=== PATIENT | female | born 1965 | race Caucasian/White ===

== ENCOUNTER → 2017-01-19 | Outpatient (CLI) | payer BC ==
[~2017-01-19] MED LIST: GLUC1CAP33 PO; MULT-513 PO
--- NOTE | 2017-01-19 12:55 | MAMMOGRAPHY REPORT ---
BILATERAL DIGITAL SCREENING MAMMOGRAM TOMOSYNTHESIS WITH CAD: 01/19/2017 TECHNIQUE: Breast tomosynthesis in addition to standard 2D mammography was performed. Current study was also evaluated with a Computer Aided Detection (CAD) system. COMPARISON: Comparison is made to exams dated: 02/03/2009, 01/09/2008, and 01/01/2008. BREAST COMPOSITION: The tissue of both breasts is heterogeneously dense, which may obscure small mas ses. FINDINGS: There is an oval circumscribed 5 cm mass in the right central/9:00 breast, for which ultra sound is recommended for further evaluation. This may represent a cyst. The remainder of both breasts are stable compared to prior exams, without suspicious masses, calcific ations, or areas of architectural distortion noted. Benign-appearing calcifications in the left [address] are not significantly changed. IMPRESSION: ACR BI-RADS CATEGORY 0: INCOMPLETE EVALUATION: NEED ADDITIONAL IMAGING EVALUATION Right breast mass, for which ultrasound is recommended for further evaluation. The patient will be c alled to schedule an appointment. Approximately 10% of breast cancers are not detected with mammography. A negative mammographic report should not delay biopsy if a clinically suggestive mass is present. Cherelle Rodgers M.D. ah/:01/19/2017 07:49:04 Blood Bank Supervisor: Ambar MITCHELL(R)(M), [facility] letter sent: Addl Imaging 0 BI-RADS Code: ACR BI-RADS Category 0: Incomplete Evaluation: Need Additional Imaging Evaluation
== END | disposition home or self-care (01) ==
LOC: C.MAMM 07:21
PROVIDERS: ATTEND Obstetrics & Gynecology
DX: Z12.31 Encounter for screening mammogram for malignant neoplasm of breast (principal); N63 Unspecified lump in breast

== ENCOUNTER → 2017-01-24 | Outpatient (CLI) | payer BC | END | disposition home or self-care (01) | LOC: C.PAPS 12:16 | PROVIDERS: ATTEND Obstetrics & Gynecology | DX: Z01.419 Encounter for gynecological examination (general) (routine) without abnormal findings (principal) ==

== ENCOUNTER → 2017-01-25 | Outpatient (CLI) | payer BC ==
--- NOTE | 2017-01-25 13:13 | MAMMOGRAPHY REPORT ---
ULTRASOUND OF RIGHT BREAST: 01/25/2017 CLINICAL HISTORY: Callback from screening mammogram for right breast mass. COMPARISON: Comparison is made to exams dated: 01/19/2017 mammogram - [facility], , 01/09/2008, 01/09/2008, 01/09/2008, and 01/01/2008. TECHNIQUE: Real-time targeted ultrasound of the right breast was performed. FINDINGS: Real-time, high resolution targeted ultrasound was performed of the area of the 5 cm circu mscribed mass seen on the recent screening mammogram. In the right breast at 9:00 periareolar region , there is an oval anechoic circumscribed mass which measures 4.7 x 1.3 x 3.5 cm. This corresponds w ith the mammographic mass and is consistent with a benign simple cyst. No suspicious solid masses we re evident. IMPRESSION: ACR BI-RADS CATEGORY 2: BENIGN Benign 4.7 cm simple cyst in the right 9:00 breast, which corresponds with the mammographic mass. Th ere is no sonographic evidence of malignancy. A 1 year screening mammogram is recommended. The patient was verbally notified of the results. Cherelle Rodgers M.D. /:01/25/2017 10:03:07 Jeweler Apprentice: Yasmine MCKEON)(M), [facility] letter sent: Normal 1/2 BI-RADS Code: ACR BI-RADS Category 2: Benign
== END | disposition home or self-care (01) ==
LOC: C.MAMM 09:32
PROVIDERS: ATTEND Obstetrics & Gynecology
DX: N63 Unspecified lump in breast (principal)

== ENCOUNTER 2017-05-17 12:26 | Emergency (ER) | payer BC ==
[~2017-05-17] VITALS: Ht 170.2 cm; Wt 67.5 kg
[2017-05-17 12:30] VITALS: TEMP 36.8; Ht 170.2 cm; Wt 67.5 kg
[2017-05-17] MEDS ORDERED: GLUC1CAP33 PO (13:13)
[2017-05-17] MEDS ORDERED: MULT-513 PO (13:13)
[2017-05-17] MEDS ORDERED: ASPIRIN 324 MG CHEW PO STA (13:28)
[2017-05-17 13:45] LABS: BASO % 0.4 %; BASO ABS # 0.03 K/uL (0-0.2); COMPLETE YES; EOS % 1.4 %; HEMATOCRIT 41.1 % (37-47); IG% 0.3 %; LYMPH % 18.1 %; LYMPH ABS # 1.27 K/uL (1.2-3.4); MEAN CELL VOLUME 86.2 fL (80-100); MEAN CORPUSCULAR HEMOGLOBIN 29.8 pg (25-34); MEAN CORPUSCULAR HGB CONC 34.5 g/dl (32-36); MONO % 12.4 %; NEUT % 67.4 %; PLATELET COUNT 245 K/uL (130-400); RED BLOOD COUNT 4.77 M/uL (4.2-5.4)
[2017-05-17 13:51] LABS: PROTHROMBIN TIME (PATIENT) 10.5 SECONDS (9.0-12.0)
[2017-05-17 13:55] LABS: CREATININE 0.62 mg/dl (0.60-1.20); POTASSIUM 3.8 mmol/L (3.5-5.1)
[2017-05-17 13:55] LABS: POINT OF CARE TROPONIN I < 0.030 ng/ml (0-0.045)
[2017-05-17 14:06] LABS: ALB/GLOB RATIO 1.1 (0.9-2); CKMB/CK RATIO 1.8 (0-3.0); PREG INTERNAL NEGATIVE QC NEG CLEAR BACKGROUND; PREG INTERNAL POSITIVE QC POS CONTROL LINE; THYROID STIMULATING HORMONE 1.95 uIu/ml (0.300-4.500)
--- NOTE | 2017-05-17 14:12 | DIAGNOSTIC IMAGING REPORT ---
CHEST 2 VIEWS ROUTINE HISTORY: 52 years-old Female JAW PAIN, CHEST PAIN, SOB acute atypical chest pain with shortness of breath. COMPARISON: KUB 03/18/2014 TECHNIQUE: Frontal and lateral views of the chest FINDINGS: Cardiomediastinal and hilar silhouettes are within normal limits. There is atherosclerosis of the aorta. No pneumothorax, pleural effusion or focal airspace consolidation. Lungs are mildly hyperinflated. The bones appear grossly intact. IMPRESSION: No acute cardiopulmonary process. The above report was generated using voice recognition software. It may contain grammatical, syntax or spelling errors. Electronically signed by: Paramjit Salinas M.D. 05/17/2017 2:11 PM Dictated Date/Time: 05/17/2017 2:09 PM
--- NOTE | 2017-05-17 15:41 | EMERGENCY ROOM VISIT NOTE ---
History First contact with patient: 13:08 Chief Complaint: CARDIAC ASSESSMENT Stated Complaint: TIGHTNESS IN CHEST Nursing Triage Summary: CP since Monday, across chest. Today started with radiation to jaw and associated SOB History of Present Illness Patient is a 52-year-old white female who presents emergency department for evaluation of chest heaviness, jaw pain and shortness of breath. She states that her symptoms started about 4 days ago with heaviness in the right upper chest. It started Monday evening. She was resting at home at the time of onset. She previously had been feeling well. She denies any unusual activity or injury that could have caused the symptoms. She states that she "felt off," but cannot elaborate more on that. She states the heaviness in her chest was constant, and denies that it was painful. She did not take anything for her symptoms and went to bed and when she woke up the following day she felt fine until today. Around 8:00, she noticed some soreness in the left side of her jaw. She describes it as a dull, tight, ache. She states that it was constant throughout the day, and began to radiate towards her chin and down her anterior neck. Around lunchtime, she noticed some heaviness in the right arm which has persisted, and some slight shortness of breath which she describes as a sensation that she cannot take a full breath. She denies any true anterior chest pain, palpitations. She rates her discomfort a 5/10. She is still experiencing some shortness of breath and heaviness in the right arm, the jaw pain has receded more towards the left jaw presently. The pain also did stretch across her upper back, above her bra line. She does not take any medications for days symptoms either. She denies any associated headache, lightheadedness, dizziness, nausea, vomiting, indigestion or reflux, no urinary symptoms or bowel changes. She denies any abdominal pain or low back pain. She 's never had symptoms similar to this previously. She had a remote some palpitations when she was with her adult son that were evaluated with an EKG, but has never had any recent cardiac evaluation or a stress test. She is relatively healthy, denies any history of diabetes, heart disease or hypertension. She states that her total cholesterol is low, but she has high triglycerides which she is treating with ice, medication. She does not know any family history as she is adopted. She was never a smoker. She denies any calf or leg pain or swelling. No recent travel. She is perimenopausal, still does get fairly regular menstrual cycles. Review of Systems Review of systems as per HPI. All other systems reviewed were negative. 10 systems reviewed. Past Medical/Surgical History Medical Problems: (1) Anxiety (2) Migraines (3) Personal History Of Urinary Calculi Electronic medical records are reviewed and summarized as above/below. See Problem List. Family History Patient reports no known family medical history. Patient was adopted, does not know any family history. Social History Smoking Status: Never Smoker Housing Status: lives with family Occupation Status: employed Current/Historical Medications Scheduled Glucosamine-Chondroitin (Glucosamine & Chondroitin 500-400 mg), 1 CAP PO DAILY Multivitamins/Minerals (Mvi With Minerals), 1 TAB PO DAILY Physical Exam Vital Signs Date Time Temp Pulse Resp B/P (MAP) Pulse Ox O2 Delivery O2 Flow Rate FiO2 05/17/17 16:07 88 20 120/80 97 05/17/17 14:31 84 16 127/91 98 Room Air 05/17/17 13:05 96 Room Air 05/17/17 12:47 89 05/17/17 12:43 86 16 132/94 96 Room Air 05/17/17 12:30 36.8 97 18 134/93 96 Room Air Physical Exam CONSTITUTIONAL: Patient is a pleasant, well-appearing 52-year-old white female who is awake and alert and in no acute distress. Her family members are at the bedside. EYES: Pupils equal, round, reactive to light and accommodation. EOMs intact without nystagmus. Sclera are anicteric. ENT: Tympanic membranes intact, with normal landmarks. External canals are clear. Oral and nasopharynx are clear. Mucous membranes are moist, no lesions , tongue and gums appear normal. NECK: No bruits auscultated. Supple without lymphadenopathy. No thyromegaly. No meningeal signs. Full active range of motion without discomfort. CARDIOVASCULAR: Regular rate and rhythm, with normal S1 and S2, no murmur or gallop or rub is heard. No carotid bruits auscultated. No JVD. Peripheral pulses easy to palpable. RESPIRATORY: Breath sounds equal and clear to auscultation without wheezes, rales, or rhonchi heard. Full and equal chest expansion without accessory muscle use or retractions. GI: Bowel sounds are present. Abdomen is soft, nontender, nondistended. No organomegaly. No pulsatile masses. No guarding or rebound. MUSCULOSKELETAL: Full range of motion of extremities x 4 with good strength. No cyanosis, edema, joint tenderness or swelling. No deformity. INTEGUMENTARY: No lesions or rash, normal skin turgor. NEUROLOGICAL: Alert, oriented, and cooperative. Cranial nerves, sensation and strength grossly intact. Pupils round, equal, and react to light, EOMs are full. LYMPH: No lymphadenopathy. Medical Decision & Procedures ER Provider Diagnostic Interpretation: CHEST 2 VIEWS ROUTINE HISTORY: 52 years-old Female JAW PAIN, CHEST PAIN, SOB acute atypical chest pain with shortness of breath. COMPARISON: K[facility] 03/18/2014 TECHNIQUE: Frontal and lateral views of the chest FINDINGS: Cardiomediastinal and hilar silhouettes are within normal limits. There is atherosclerosis of the aorta. No pneumothorax, pleural effusion or focal airspace consolidation. Lungs are mildly hyperinflated. The bones appear grossly intact. IMPRESSION: No acute cardiopulmonary process. Laboratory Results 05/17/17 12:43 Red Blood Count 4.77, Mean Corpuscular Volume 86.2, Mean Corpuscular Hemoglobin 29.8, Mean Corpuscular Hemoglobin Concent 34.5, Mean Platelet Volume 10.0, Neutrophils (%) (Auto) 67.4, Lymphocytes (%) (Auto) 18.1, Monocytes (%) (Auto) 12.4, Eosinophils (%) (Auto) 1.4, Basophils (%) (Auto) 0.4, Neutrophils # (Auto ) 4.71, Lymphocytes # (Auto) 1.27, Monocytes # (Auto) 0.87, Eosinophils # (Auto ) 0.10, Basophils # (Auto) 0.03 05/17/17 12:43 Test 05/17/17 12:43 05/17/17 13:37 05/17/17 14:44 White Blood Count 7.00 K/uL (4.8-10.8) Red Blood Count 4.77 M/uL (4.2-5.4) Hemoglobin 14.2 g/dL (12.0-16.0) Hematocrit 41.1 % (37-47) Mean Corpuscular Volume 86.2 fL (80-100) Mean Corpuscular Hemoglobin 29.8 pg (25-34) Mean Corpuscular Hemoglobin Concent 34.5 g/dl (32-36) Platelet Count 245 K/uL (130-400) Mean Platelet Volume 10.0 fL (7.4-10.4) Neutrophils (%) (Auto) 67.4 % Lymphocytes (%) (Auto) 18.1 % Monocytes (%) (Auto) 12.4 % Eosinophils (%) (Auto) 1.4 % Basophils (%) (Auto) 0.4 % Neutrophils # (Auto) 4.71 K/uL (1.4-6.5) Lymphocytes # (Auto) 1.27 K/uL (1.2-3.4) Monocytes # (Auto) 0.87 K/uL (0.11-0.59) Eosinophils # (Auto) 0.10 K/uL (0-0.5) Basophils # (Auto) 0.03 K/uL (0-0.2) RDW Standard Deviation 40.0 fL (36.4-46.3) RDW Coefficient of Variation 12.7 % (11.5-14.5) Immature Granulocyte % (Auto) 0.3 % Immature Granulocyte # (Auto) 0.02 K/uL (0.00-0.02) Prothrombin Time 10.5 SECONDS (9.0-12.0) Prothromb Time International Ratio 1.0 (0.9-1.1) Activated Partial Thromboplast Time 26.2 SECONDS (21.0-31.0) Partial Thromboplastin Ratio 1.0 Anion Gap 7.0 mmol/L (3-11) Est Creatinine Clear Calc Drug Dose 104.4 ml/min Estimated GFR () 121.0 Estimated GFR (Non- 104.4 BUN/Creatinine Ratio 16.0 (10-20) Calcium Level 9.0 mg/dl (8.5-10.1) Total Bilirubin 0.5 mg/dl (0.2-1) Aspartate Amino Transf (AST/SGOT) 10 U/L (15-37) Alanine Aminotransferase (ALT/SGPT) 20 U/L (12-78) Alkaline Phosphatase 101 U/L (45-117) Total Creatine Kinase 45 U/L (26-192) Creatine Kinase MB 0.8 ng/ml (0.5-3.6) Creatine Kinase MB Ratio 1.8 (0-3.0) Total Protein 8.0 gm/dl (6.4-8.2) Albumin 4.1 gm/dl (3.4-5.0) Globulin 3.9 gm/dl (2.5-4.0) Albumin/Globulin Ratio 1.1 (0.9-2) Lipase 154 U/L (73-393) Thyroid Stimulating Hormone (TSH) 1.950 uIu/ml (0.300-4.500) Human Chorionic Gonadotropin, Qual NEG (NEG) Bedside D-Dimer 218 ng/mlFEU (0-450) Bedside Troponin I < 0.030 ng/ml (0-0.045) Medications Administered Medications (Trade) Dose Ordered Sig/Megan Route Start Time Stop Time Status Last Admin Dose Admin Aspirin (Aspirin Chew) 324 mg NOW STAT PO 05/17/17 13:28 05/17/17 13:31 DC 05/17/17 13:49 324 MG ECG Indication: chest pain Rate (beats per minute): 84 Rhythm: normal sinus Findings: no acute ischemic change, no ectopy Comparison ECG Date: no prior available ED Course The patient was seen and evaluated as above. Her old records were reviewed. She presents to the emergency department for evaluation of chest heaviness, and jaw and neck pain. IV lock was initiated. She is placed on a groundwater monitoring technician, EKG was performed and it was as noted above. Laboratory studies were collected. She was given aspirin 324 mg chewable. Chest x-ray was obtained, which did not note any acute cardiopulmonary pathology. Laboratory studies noted a normal white count of 7000, H&H normal, platelets and coags are unremarkable. [id number] d-dimer was within normal limits, therefore further workup for PE was not pursued. Electrolytes, renal functions and liver functions are not elevated. CK, CK-MB are negative and a dplej-hp-[id number] troponin is negative 2. Lipase is not indicative of acute pancreatitis. TSH is indicative of a euthyroid state. All laboratory and diagnostic imaging studies were reviewed with attending physician and discussed with the patient and her family at length. Given her unremarkable ED workup to this point, in addition to her relative lack of cardiac risk factors, it was felt that she could be discharged home with close PCP follow-up for further cardiac evaluation. Patient is breast understanding of this and was in agreement. She was educated on the worrisome signs or symptoms for which she should return to the emergency department. The patient had no discomfort at the time of discharge. Differential diagnosis includes acute myocardial infarction, acute coronary syndrome, myocarditis, pericarditis, pulmonary embolism, pneumonia, pneumothorax , cardiomyopathy, congestive heart failure, anemia, COPD/asthma exacerbation, musculoskeletal, anxiety, costochondritis, among others. Medical Decision See ED course. Medication Reconcilliation Current Medication List: was personally reviewed by me Blood Pressure Screening Blood pressure disposition: Did not require urgent referral Impression Primary Impression: Chest tightness or pressure Additional Impression: Jaw pain Departure Information Referrals Matias Rosas M.D. (PCP) Patient Instructions My [facility] [employer] Additional Instructions Acetaminophen(Tylenol) may be used for fever or pain. Use 1000mg every six hours as needed. Avoid using more than 3000mg in a 24 hour period. Rest and drink plenty of fluids as tolerated. Continue current medications. Avoid strenuous activities and anything that worsens your pain. Resume normal activities once your symptoms resolve. Return to the ER immediately for worsening or persistent chest pain, abdominal pain, vomiting, fevers, chest pains, difficulty breathing, worsening of your condition, or as needed. Follow up with your primary physician in 2-3 days for a recheck of your current condition. Problem Qualifiers
[2017-05-17 16:07] VITALS: BP 120/80; PULSE 88; O2SAT 97
== END 2017-05-17 16:08 | disposition home or self-care (01) ==
LOC: C.EDB 12:27 → C.EDC 16:08
DX: R07.89 Other chest pain (principal); R68.84 Jaw pain; F41.9 Anxiety disorder, unspecified; G43.909 Migraine, unspecified, not intractable, without status migrainosus; Z87.442 Personal history of urinary calculi